=== PATIENT | female | born 1955 | race Caucasian/White ===

== ENCOUNTER 2017-11-10 07:52 | Inpatient (IN) ==
[2017-11-10 08:46] LABS: Baso % (Auto) 0.6 % (0.0-2.0); Eos # (Auto) 0.1 th/mm3 (0.0-0.4); Eos % (Auto) 1.1 % (0.0-4.0); Hematocrit 41.5 % (35.0-46.0); Hemoglobin 13.8 gm/dL (11.6-15.3); Lymph # (Auto) 1.7 th/mm3 (1.0-4.8); Mean Corpuscular HGB Conc 33.2 % (32.0-36.0); Mean Corpuscular Hemoglobin 31.1 pg (27.0-34.0); Mean Corpuscular Volume 93.9 fL (80.0-100.0); Mean Platelet Volume 8.6 fL (7.0-11.0); Mono # (Auto) 0.4 th/mm3 (0.0-0.9); Mono % (Auto) 5.4 % (0.0-8.0); Neut # (Auto) 5.5 th/mm3 (1.8-7.7); Neut % (Auto) 70.9 % (16.0-70.0); Platelet Count 168 th/mm3 (150-450); Red Blood Count 4.42 mil/mm3 (4.00-5.30); Red Cell Distribution Width 13.1 % (11.6-17.2); White Blood Count 7.8 th/mm3 (4.0-11.0)
[2017-11-10 08:59] LABS: Prothrombin Time 9.9 sec (9.8-11.6)
[2017-11-10] MEDS ORDERED: Lidocaine 1%/Epinephrine 1:100,000 Inj 50 ML Vial ONE (09:44)
[2017-11-10] MEDS ORDERED: fentaNYL Citrate Inj 250 MCG/5 ML Ampul ONE ×2 (09:56→11:48)
--- NOTE | 2017-11-10 10:48 | P.RAD ---
Post CT Procedure Prog Note - Pre Procedure Diagnosis (1) Lung cancer - Post Procedure Diagnosis (1) Lung cancer - Procedure Information Supervising Radiologist: Josafat Morrissey MD Anesthesia: Conscious Sedation - Plan of Activity Patient to Unit: ROPU Patient condition: Good Additional Comments: pneumothorax present cxr pending See PACS Report for procedural detail/treatment. Biopsy CT right Lung Specimen: Core Biopsy
--- NOTE | 2017-11-10 11:09 | XR ---
EXAM DATE: 11/10/2017 11:03 AM EDT AGE/SEX: 62 years / Female INDICATIONS: Post right lung biopsy. CLINICAL DATA: This is the patient's subsequent encounter. Patient reports that signs and symptoms h ave been present for 1 day and indicates a pain score of 2/10. MEDICAL/SURGICAL HISTORY: Carcinoma, breast. Chronic obstructive pulmonary disease. Renal river culi. Cholecystectomy. COMPARISON: [facility] [place], CHEST SINGLE AP, 07/02/2015. . FINDINGS: The cardiac silhouette is normal in transverse diameter. There is a right apical pneumothorax followi ng biopsy with 3 cm separation at the apex. There are no signs of tension. There is no evidence of pn eumonia. The background interstitium is prominent though this is likely chronic in nature. CONCLUSION: Right apical pneumothorax following biopsy. Chest tube is to be placed Electronically signed by: Josafat Morrissey MD 11/10/2017 11:07 AM EDT
--- NOTE | 2017-11-10 12:29 | P.RAD ---
Post Procedure Progress Note - Procedure Information Procedure Date: 11/10/17 Supervising Radiologist: Shady Diaz MD Estimated blood loss (mL): 0 Anesthesia: Conscious Sedation - Plan of Activity Patient to Unit: ROPU Patient Condition: Good See PACS Report for procedural detail/treatment.
[2017-11-10] MEDS ORDERED: Acetaminophen 325 MG Tablet PO PRN (13:14)
[2017-11-10] MEDS: Morphine Sulfate Inj 2 MG/ML Vial IV.PUSH PRN ×4 (13:23→23:20)
--- NOTE | 2017-11-10 13:31 | P.HP ---
<Eryn Birmingham W - Last Filed: 11/10/17 15:51> History of Present Illness Primary Care Physician: Dr. James Chief Complaint: pneumothorax after chest tube History of Present Illness: This is a 62 year old female with history of choledocholithiasis, recurrent pancreatitis and biliary obstruction requiring multiple ERCP with stent placement and stone removal, HTN, HLD, COPD, squamous cell carcinoma of skin cancer, vulvar cancer, breast cancer and Raynaud phenomenon. Patient's outpatient oncologist is Dr. Lea located in [place]. Patient had CT of the chest done as an outpatient at [facility] on 09/23/17 which showed: new dominant spiculated nodule in the superior right lower lobe with multiple additional new smaller nodule throughout the right upper lobe, concerning for malignancy. Patient presented to [facility] for CT guided bx of this lung nodule. Patient then had pneumothorax after CT guided bx and chest tube was placed. We have been consulted to admit patient. Patient seen in radiology recovery unit reports that she had nausea earlier which has resolved after zofran. Patient also reports pain earlier at chest tube site that has since resolved. Patient denies SOB, fevers or chills. Past Medical History hypertension Hyperlipidemia COPD squamous cell carcinoma of the skin Vulvar cancer breast cancer Raynaud phenomenon pancreatitis Past Surgical History ex lap, Cholecystectomy bilateral mastectomy appendix vulvar surgery Social History has 2 growth children one lives in [facility] one lives locally denies etoh use current tobacco, trying to quit Family medical history emphysema HTN HLD fibrocystic disease breast cancer - Diagnosis (1) Pneumothorax after biopsy Review of Systems All other systems reviewed negative except as stated in HPI [facility] - History History Provided By: Patient - Medical History Medical History: Medical History (Last Updated 11/10/17 @ 08:23 by Marisel Godinez RN) Breast CA COPD (chronic obstructive pulmonary disease) Hypertension Nephrolithiasis Osteoporosis Polycythemia - Tobacco History Second Hand Smoke Exposure: No Tobacco Use In Past 30 Days: Yes Smoking Status: Current every day smoker Tobacco Type: Cigarettes - Alcohol History How Often Do You Have a Drink Containing Alcohol: Never - Substance Use History Substance History: No History of Abuse - Travel History Recent Travel in the [place] Within the Last 8 Weeks: No Recent Travel Out of the Country Within the Last 8 Weeks: No Medications and Allergies Allergies Allergy/AdvReac Type Severity Reaction Status Date / Time Sulfa (Sulfonamide Allergy Severe Hives Verified 11/10/17 08:11 Antibiotics) codeine AdvReac Severe Nausea/Vomi Verified 11/10/17 08:11 ting hydrocodone AdvReac Severe Nausea/Vomi Verified 11/10/17 08:11 ting hydromorphone AdvReac Severe Nausea/Vomi Verified 11/10/17 08:11 ting oxycodone AdvReac Severe Nausea/Vomi Verified 11/10/17 08:11 ting Home Medications Medication Instructions Recorded Confirmed Type Breo Ellipta 100 mcg INHALATION DAILY 11/10/17 11/10/17 History fluconazole 100 mg PO DAILY 11/10/17 11/10/17 History lisinopril 5 mg PO DAILY 11/10/17 11/10/17 History tramadol 50 mg PO Q4-6H PRN 11/10/17 11/10/17 History umeclidinium [Incruse Ellipta] 1 inh INHALATION HS 11/10/17 11/10/17 History Active Medications: Active Medications Sodium Chloride (Ns Inj) 1,000 mls @ 30 mls/hr IV.SIG .Q24H [facility] Exam Vital signs: Vital Signs 11/10/17 08:12 11/10/17 10:55 11/10/17 11:10 Temperature 97.7 F 98.0 F Pulse Rate 76 93 H 83 Respiratory Rate 20 20 20 Blood Pressure 149/82 H 100/67 104/69 Pulse Oximetry 97 98 98 11/10/17 11:40 11/10/17 12:35 11/10/17 12:50 Temperature 97.8 F Pulse Rate 76 78 68 Respiratory Rate 20 16 20 Blood Pressure 104/69 102/67 135/85 Pulse Oximetry 98 95 97 Intake & Output 11/09/17 11/10/17 11/10/17 18:59 06:59 18:59 Weight 35.38 kg Other: Weight On Admission 35.38 kg Narrative: GENERAL: This is a well-nourished, well-developed patient, in no apparent distress. CARDIOVASCULAR: Regular rate and rhythm RESPIRATORY: clear bilaterally. Right chest tube present GASTROINTESTINAL: Abdomen soft, non-tender, nondistended. Normal active bowel sounds MUSCULOSKELETAL: Extremities without clubbing, cyanosis, or edema. NEURO: Alert & Oriented x4 to person, place, time, situation. Moves all ext x4 Results - Labs CBC & Chem 7: 11/10/17 08:30 Labs: Laboratory Results - last 24 hr 11/10/1718 18 08:30 08:30 08:30 WBC 7.8 RBC 4.42 Hgb 13.8 Hct 41.5 MCV 93.9 MCH 31.1 MCHC 33.2 RDW 13.1 Plt Count 168 MPV 8.6 Neut % (Auto) 70.9 H Lymph % (Auto) 22.0 [place] % (Auto) 5.4 Eos % (Auto) 1.1 Baso % (Auto) 0.6 Neut # (Auto) 5.5 Lymph # (Auto) 1.7 [place] # (Auto) 0.4 Eos # (Auto) 0.1 Baso # (Auto) 0.0 WBC Differential . Differential Comment Auto diff final PT 9.9 INR 1.0 APTT 23.6 L - Imaging Impressions Chest X-Ray 11/10/17 10:45 CONCLUSION: Right apical pneumothorax following biopsy. Chest tube is to be placed Caprini VTE Risk Assessment Caprini VTE Risk Assessment: Moderate/High Risk (score >= 2) Caprini Risk Assessment Model: Point Value = 1 Point Value = 2 Point Value = 3 Point Value = 5 Age 41-60 Minor surgery BMI > 25 kg/m2 Swollen legs Varicose veins or History of unexplained or recurrent spontaneous Oral contraceptives or hormone replacement Sepsis (< 1 month) Serious lung disease, including pneumonia (< 1 month) Abnormal pulmonary function Acute myocardial infarction Congestive heart failure (< 1 month) History of inflammatory bowel disease Medical patient at bed rest Age 61-74 Arthroscopic surgery Major open surgery (> 45 min) Laparoscopic surgery (> 45 min) Malignancy Confined to bed (> 72 hours) Immobilizing plaster cast Central venous access Age >= 75 History of VTE Family history of VTE Factor V Leiden Prothrombin [id number] Lupus anticoagulant Anticardiolipin antibodies Elevated serum homocysteine Heparin-induced thrombocytopenia Other congenital or acquired thrombophilia Stroke (< 1 month) Elective arthroplasty Hip, pelvis, or leg fracture Acute spinal cord injury (< 1 month) Prophylaxis Regimen: Total Risk Factor Score Risk Level Prophylaxis Regimen 0-1 Low Early ambulation 2 Moderate Order ONE of the following: *Sequential Compression Device (SCD) *Heparin 5000 units SQ BID 3-4 Higher Order ONE of the following medications: *Heparin 5000 units SQ TID *Enoxaparin/Lovenox 40 mg SQ daily (WT < 150 kg, CrCl > 30 mL/min) *Enoxaparin/Lovenox 30 mg SQ daily (WT < 150 kg, CrCl > 10-29 mL/min) *Enoxaparin/Lovenox 30 mg SQ BID (WT < 150 kg, CrCl > 30 mL/min) AND/OR *Sequential Compression Device (SCD) 5 or more Highest Order ONE of the following medications: *Heparin 5000 units SQ TID (Preferred with Epidurals) *Enoxaparin/Lovenox 40 mg SQ daily (WT < 150 kg, CrCl > 30 mL/min) *Enoxaparin/Lovenox 30 mg SQ daily (WT < 150 kg, CrCl > 10-29 mL/min) *Enoxaparin/Lovenox 30 mg SQ BID (WT < 150 kg, CrCl > 30 mL/min) AND *Sequential Compression Device (SCD) Assessment and Plan - Assessment (1) Pneumothorax after biopsy Code(s): J95.811 - Postprocedural pneumothorax Status: Acute Plan: This is a 62 year old female with history of choledocholithiasis, recurrent pancreatitis and biliary obstruction requiring multiple ERCP with stent placement and stone removal, HTN, HLD, COPD, squamous cell carcinoma of skin cancer, breast cancer and Raynaud phenomenon. Patient had CT of the chest done as an outpatient at [facility] on 09/23/17 which showed: new dominant spiculated nodule in the superior right lower lobe with multiple additional new smaller nodule throughout the right upper lobe, concerning for malignancy. Patient presented to [facility] for CT guided bx of this lung nodule. Patient then had pneumothorax after CT guided bx and chest tube was placed. We have been consulted to admit patient. Pneumothorax after biopsy Chest tube placed by IR, management of chest tube per IR repeat CXR in AM Hypertension Continue patient's home Lisinopril 5 mg daily COPD Continue patient's home Breo Ellipta and Incruse Ellipta add duonebs as needed Tobacco use nicotine patch encouraged to abstain DVT prophylaxis with SCDs <Edward Bell - Last Filed: 11/11/17 13:45> History of Present Illness Primary Care Physician: UNKNOWN - Diagnosis (1) Pneumothorax after biopsy Inpatient Certification: I certify that the inpatient services were ordered in accordance with Medicare regulations governing the order. This includes certification that hospital inpatient services are reasonable and necessary and in the case of services not specified as inpatient-only under 42 CFR 419.22(n), that they are appropriately provided as inpatient services in accordance to with the 2-midnight benchmark under 43 CFR 412.3(e) [facility] - Medical History Medical History: Medical History (Last Updated 11/10/17 @ 08:23 by Marisel Godinez RN) Breast CA COPD (chronic obstructive pulmonary disease) Hypertension Nephrolithiasis Osteoporosis Polycythemia Medications and Allergies Active Medications: Active Medications Acetaminophen (Tylenol) 650 mg PO Q4H PRN PRN Reason: Temp > 100.4 Al Hydroxide/Mg Hydroxide (Milk Of Basia Liq) 30 ml PO Q12H PRN PRN Reason: Mild Constipation Albuterol (Duoneb Neb (Prn)) 1 ampul NEB Q2HR NEB PRN PRN Reason: SHORTNESS OF BREATH/WHEEZING Fluticasone/Vilanterol (Breo Ellipta 100/25 Mcg Inh) 1 puff INH BID [facility] Last Admin: 11/11/17 09:23 Dose: 1 puff Sodium Chloride (Ns Inj) 1,000 mls @ 30 mls/hr IV.SIG .Q24H [facility] Last Admin: 11/11/17 09:23 Dose: Not Given Potassium Chloride/Sodium Chloride (Potassium Chlor 20 Meq/Nacl 0.45% Inj) 1, 000 mls @ 84 mls/hr IV.CONT .[id number] [facility] Lisinopril (Prinivil) 5 mg PO DAILY [facility] Last Admin: 11/11/17 09:22 Dose: 5 mg Morphine Sulfate (Morphine Inj) 2 mg IV.PUSH Q4H PRN PRN Reason: BREAKTHROUGH PAIN Last Admin: 11/11/17 09:17 Dose: 2 mg Nicotine (Habitrol 14 Mg Patch.24 Hr) 1 patch T-DERMAL DAILY [facility] Last Admin: 11/11/17 09:23 Dose: Not Given Ondansetron HCl (Zofran Inj) 4 mg IV.PUSH Q6H PRN PRN Reason: NAUSEA OR VOMITING Last Admin: 11/11/17 09:24 Dose: 4 mg Patch Removal (Remove Old Patch) 1 each T-DERMAL DAILY [facility] Last Admin: 11/11/17 09:23 Dose: 1 each Patient Own Medication ( Umeclidinium [ Incruse Ellipta] 1 Inh) 0 each INH DAILY [facility] Senna/Docusate Sodium (Meri-Colace) 1 tab PO BID [facility] Last Admin: 11/11/17 09:21 Dose: Not Given Temazepam (Restoril) 15 mg PO HS PRN PRN Reason: INSOMNIA Tramadol HCl (Ultram) 50 mg PO Q6H PRN PRN Reason: PAIN SCALE 1 TO 10 Last Admin: 11/11/17 13:18 Dose: 50 mg Exam Vital signs: Vital Signs 11/10/17 14:15 11/10/17 14:45 11/10/17 20:00 Temperature 97.8 F Pulse Rate 68 67 87 Respiratory Rate 18 20 18 Blood Pressure 138/80 130/78 149/69 H Pulse Oximetry 98 98 92 L 11/11/17 00:00 11/11/17 08:00 11/11/17 12:00 Temperature 98.1 F 98.0 F 97.8 F Pulse Rate 85 84 87 Respiratory Rate 18 17 17 Blood Pressure 125/74 108/60 125/60 Pulse Oximetry 100 96 92 L Intake & Output 11/10/17 11/11/17 11/11/17 18:59 06:59 18:59 Weight 35.38 kg 35.38 kg Other: # Voids 4 Date of Last Bowel Movement 11/10/17 # Emeses 2 Weight On Admission 35.38 kg Results - Labs CBC & Chem 7: 11/11/17 06:51 11/11/17 06:51 Labs: Laboratory Results - last 24 hr 11/11/17 11/11/17 06:51 06:51 WBC 6.4 RBC 3.94 L Hgb 12.2 Hct 36.8 MCV 93.4 MCH 31.1 MCHC 33.3 RDW 13.1 Plt Count 141 L MPV 8.9 Neut % (Auto) 76.3 H Lymph % (Auto) 17.6 [place] % (Auto) 5.5 Eos % (Auto) 0.2 Baso % (Auto) 0.4 Neut # (Auto) 4.9 Lymph # (Auto) 1.1 [place] # (Auto) 0.4 Eos # (Auto) 0.0 Baso # (Auto) 0.0 WBC Differential . Differential Comment Auto diff final Sodium 143 Potassium 4.2 Chloride 107 Carbon Dioxide 25.6 Anion Gap 10 BUN 17 Creatinine 0.92 Estimated GFR 62 L Random Glucose 77 Calcium 8.8 - Imaging Impressions Chest Tube Insertion 11/10/17 00:00 CONCLUSION: 1. Uncomplicated chest tube placement as above. Chest X-Ray 11/11/17 03:26 CONCLUSION: Resolution of the right pneumothorax with right chest tube in place. Chest X-Ray 11/11/17 12:28 CONCLUSION: Resolution of the previously noted right pneumothorax status post placement of small chest tube. Caprini VTE Risk Assessment Caprini Risk Assessment Model: Point Value = 1 Point Value = 2 Point Value = 3 Point Value = 5 Age 41-60 Minor surgery BMI > 25 kg/m2 Swollen legs Varicose veins or History of unexplained or recurrent spontaneous Oral contraceptives or hormone replacement Sepsis (< 1 month) Serious lung disease, including pneumonia (< 1 month) Abnormal pulmonary function Acute myocardial infarction Congestive heart failure (< 1 month) History of inflammatory bowel disease Medical patient at bed rest Age 61-74 Arthroscopic surgery Major open surgery (> 45 min) Laparoscopic surgery (> 45 min) Malignancy Confined to bed (> 72 hours) Immobilizing plaster cast Central venous access Age >= 75 History of VTE Family history of VTE Factor V Leiden Prothrombin [id number] Lupus anticoagulant Anticardiolipin antibodies Elevated serum homocysteine Heparin-induced thrombocytopenia Other congenital or acquired thrombophilia Stroke (< 1 month) Elective arthroplasty Hip, pelvis, or leg fracture Acute spinal cord injury (< 1 month) Prophylaxis Regimen: Total Risk Factor Score Risk Level Prophylaxis Regimen 0-1 Low Early ambulation 2 Moderate Order ONE of the following: *Sequential Compression Device (SCD) *Heparin 5000 units SQ BID 3-4 Higher Order ONE of the following medications: *Heparin 5000 units SQ TID *Enoxaparin/Lovenox 40 mg SQ daily (WT < 150 kg, CrCl > 30 mL/min) *Enoxaparin/Lovenox 30 mg SQ daily (WT < 150 kg, CrCl > 10-29 mL/min) *Enoxaparin/Lovenox 30 mg SQ BID (WT < 150 kg, CrCl > 30 mL/min) AND/OR *Sequential Compression Device (SCD) 5 or more Highest Order ONE of the following medications: *Heparin 5000 units SQ TID (Preferred with Epidurals) *Enoxaparin/Lovenox 40 mg SQ daily (WT < 150 kg, CrCl > 30 mL/min) *Enoxaparin/Lovenox 30 mg SQ daily (WT < 150 kg, CrCl > 10-29 mL/min) *Enoxaparin/Lovenox 30 mg SQ BID (WT < 150 kg, CrCl > 30 mL/min) AND *Sequential Compression Device (SCD) Assessment and Plan - Assessment (1) Pneumothorax after biopsy Code(s): J95.811 - Postprocedural pneumothorax Status: Acute - Attending Attestation Patient examined. Assessment and plan formulated with Eryn MCBRIDE I agree with the above.
--- NOTE | 2017-11-10 13:34 | CT ---
EXAM DATE: 11/10/2017 11:27 AM EDT AGE/SEX: 62 years / Female INDICATIONS: Right lung nodule. CLINICAL DATA: This is the patient's initial encounter. Patient reports that signs and symptoms have been present for 1 day and indicates a pain score of 0/10. MEDICAL/SURGICAL HISTORY: Carcinoma, breast. Chronic obstructive pulmonary disease. Renal river culi. Cholecystectomy. COMPARISON: [facility], CT CHEST W/ CONTRAST, 09/23/2017. . SEDATION TIME (min): 30 BIOPSY SITE: Right lung MEDICATION(S): 3 mg midazolam (Versed) IV 150 mcg fentanyl (Sublimaze) IV DEVICE(S): 19 gauge Introducer 20 gauge BARD biopsy needle . . PROCEDURE: CT guided Right lung biopsy Conscious sedation with continuous EKG and oximetry monitoring. Prior to the procedure informed consent was obtained. Any appropriate prior imaging studies were rev iewed. Using automated exposure control and adjustment of the mA and/or kV according to patient size , radiation dose was kept as low as reasonably achievable to obtain optimal diagnostic quality images . DICOM format image data is available electronically for review and comparison. The site was prepped in a sterile fashion. Full sterile technique was used, including cap, mask, arya rile gloves and gown and a large sterile sheet. Hand hygiene and 2% chlorhexidine and/or betadine/al cohol prep was utilized per protocol for cutaneous antisepsis. The skin and subcutaneous tissues wer e infiltrated with local anesthetic solution. With CT guidance the previously identified target was localized. Biopsy was performed using the presc ribed needle as above. Adequate hemostasis was obtained with compression at the puncture site. Follow-up CT scan reveals no pneumothorax. Conscious sedation was performed with the prescribed dosages and duration as above in the presence of an independent trained radiology nurse to assist in the monitoring of the patient. EKG and oximetry remained stable throughout the procedure. The patient tolerated the procedure well and there were no complications. The patient was sent to Radiology Outpatient Unit in stable condition. FINDINGS: The mass in the superior segment of the right lower lobe was identified and a total of 6 passes made through lesion. Postbiopsy images demonstrate a small pneumothorax. Chest radiograph is to be perform ed. CONCLUSION: CT-guided biopsy with postbiopsy pneumothorax. Chest radiograph is to be performed. Electronically signed by: Josafat Morrissey MD 11/10/2017 1:32 PM EDT
--- NOTE | 2017-11-10 14:22 | IR ---
EXAM DATE: 11/10/2017 1:51 PM EDT AGE/SEX: 62 years / Female INDICATIONS: Patient presents with right side pneumothorax in need of chest tube placement. CLINICAL DATA: This is the patient's initial encounter. Patient reports that signs and symptoms have been present for 1 day and indicates a pain score of 3/10. MEDICAL/SURGICAL HISTORY: . Breast carcinoma, COPD, Renal calculi. . Cholecystectomy, Post rig ht lung biopsy. COMPARISON: No prior exams available for comparison. FLUORO TIME (min): 0.6 IMAGE SERIES: 1 ACCESS SITE: SEDATION TIME (min): 30 MEDICATION(S): 2 mg midazolam (Versed) IV 100 mcg fentanyl (Sublimaze) IV DEVICE(S): 8 [place] non-locking catheter 30cm [place] . . PROCEDURE: 1. Fluoroscopically guided chest tube placement. 2. Conscious sedation with continuous EKG and oximetry monitoring. The risks, benefits and alternatives to the procedure were explained and verbal and written consent w as obtained. The site was prepped in sterile fashion. Full sterile technique was used, including ca p, mask, sterile gloves and gown and a large sterile sheet. Hand hygiene and 2% chlorhexidine and/or betadine/alcohol prep was utilized per protocol for cutaneous antisepsis. The skin and subcutaneous tissues were infiltrated with local anesthetic solution. With fluoroscopic guidance the chest was punctured between the first and second interspace and the pr escribed catheter was placed in the lung apex. Wall suction was applied. Post procedure images demon strate satisfactory position of the tube. The catheter was sutured in place and a Percu-Stay was andrea lied. Conscious sedation was performed with the prescribed dosages and duration as above in the presence of an independent trained radiology nurse to assist in the monitoring of the patient. EKG and oximetry remained stable throughout the procedure. The patient tolerated the procedure well and there were n o complications. The patient was sent to post anesthesia recovery in stable condition. CONCLUSION: 1. Uncomplicated chest tube placement as above. Electronically signed by: Shady Diaz MD 11/10/2017 2:21 PM EDT
[2017-11-10] MEDS ORDERED: Ketorolac Inj 30 MG/ML (IVP) Vial IV.PUSH ONE (14:45)
--- NOTE | 2017-11-10 16:29 | ECG ---
Date Performed: 11/10/2017 Time Performed: 13:50:37 PTAGE: 62 years EKG: Sinus rhythm NORMAL ECG PREVIOUS TRACING : 06/28/2015 18.18 Since the previous tracing, no significant change noted DOCTOR: Josafat Bee Interpretating Date/Time 11/10/2017 16:27:06
[2017-11-10] MEDS: Sod Chloride 0.9% Inj 1,000 ML IV.SIG SCH (19:27)
[2017-11-10] MEDS ORDERED: Temazepam 15 MG Capsule PO PRN (21:00)
[2017-11-10] MEDS: Senna/Docusate Sodium 8.6/50 MG Tablet PO SCH (23:18)
--- NOTE | 2017-11-11 04:23 | XR ---
EXAM DATE: 11/11/2017 4:07 AM EDT AGE/SEX: 62 years / Female INDICATIONS: Status post chest tube placement, air leak. CLINICAL DATA: This is the patient's initial encounter. Patient reports that signs and symptoms have been present for 1 day and indicates a pain score of 3/10. MEDICAL/SURGICAL HISTORY: . Breast carcinoma, COPD, Renal calculi. . Cholecystectomy, Post ri ght lung biopsy. COMPARISON: [facility] [place], 11/10/2017. . FINDINGS: A single AP view of the chest demonstrates the lungs to be symmetrically aerated without evidence of mass, infiltrate or effusion. There has been interval placement of a small caliber right thoracostomy tube. No residual pneumothorax. Lungs are hyper aerated bilaterally. The cardiomediastinal contours are unremarkable. Osseous structures are intact. CONCLUSION: Resolution of the right pneumothorax with right chest tube in place. Electronically signed by: Adonay Lopez MD 11/11/2017 4:21 AM EDT
[2017-11-11 07:24] LABS: Baso % (Auto) 0.4 % (0.0-2.0); Eos % (Auto) 0.2 % (0.0-4.0); Hematocrit 36.8 % (35.0-46.0); Hemoglobin 12.2 gm/dL (11.6-15.3); Lymph # (Auto) 1.1 th/mm3 (1.0-4.8); Lymph % (Auto) 17.6 % (9.0-44.0); Mean Corpuscular HGB Conc 33.3 % (32.0-36.0); Mean Corpuscular Hemoglobin 31.1 pg (27.0-34.0); Mean Corpuscular Volume 93.4 fL (80.0-100.0); Mean Platelet Volume 8.9 fL (7.0-11.0); Mono # (Auto) 0.4 th/mm3 (0.0-0.9); Mono % (Auto) 5.5 % (0.0-8.0); Neut # (Auto) 4.9 th/mm3 (1.8-7.7); Neut % (Auto) 76.3 % (16.0-70.0); Platelet Count 141 th/mm3 (150-450); Red Blood Count 3.94 mil/mm3 (4.00-5.30); Red Cell Distribution Width 13.1 % (11.6-17.2); White Blood Count 6.4 th/mm3 (4.0-11.0)
[2017-11-11 07:59] LABS: Calcium 8.8 mg/dL (8.5-10.1); Carbon Dioxide 25.6 meq/L (21.0-32.0); Potassium 4.2 meq/L (3.5-5.1)
[2017-11-11] MEDS ORDERED: UMECLIDINIUM INH SCH (09:00)
[2017-11-11] MEDS: Morphine Sulfate Inj 2 MG/ML Vial IV.PUSH PRN (09:17)
[2017-11-11] MEDS: Senna/Docusate Sodium 8.6/50 MG Tablet PO SCH ×2 (09:21→20:39)
[2017-11-11] MEDS: Lisinopril 5 MG Tablet PO SCH (09:22)
[2017-11-11] MEDS: Sod Chloride 0.9% Inj 1,000 ML IV.SIG SCH (09:23)
--- NOTE | 2017-11-11 12:55 | XR ---
EXAM DATE: 11/11/2017 12:52 PM EDT AGE/SEX: 62 years / Female INDICATIONS: Right sided chest pain. Evaluate for pneumothorax. CLINICAL DATA: This is the patient's subsequent encounter. Patient reports that signs and symptoms h ave been present for 2 days and indicates a pain score of 4/10. MEDICAL/SURGICAL HISTORY: Hypertension. Chronic obstructive pulmonary disease. None. [place] [facility] [place]. . FINDINGS: A small right-sided chest tube has been placed. The previously noted pneumothorax has resolved. The l ungs are clear. The heart is stable. Degenerative changes and scoliosis of the thoracic spine are not ed. CONCLUSION: Resolution of the previously noted right pneumothorax status post placement of small chest tube. Electronically signed by: Damon Francis MD 11/11/2017 12:54 PM EDT
[2017-11-11] MEDS ORDERED: Morphine Sulfate Inj 2 MG/ML Vial IV.PUSH PRN (13:48)
--- NOTE | 2017-11-11 13:50 | P.PNIM ---
Subjective Interval history: Chest tube has been removed. Pt c/o nausea and PO intake has been poor today. Some relief with zofran. Physical Exam Vital signs: 11/11/17 00:00 11/11/17 08:00 11/11/17 12:00 Temperature 98.1 F 98.0 F 97.8 F Pulse Rate 85 84 87 Respiratory Rate 18 17 17 Blood Pressure 125/74 108/60 125/60 Pulse Oximetry 100 96 92 L Narrative: GENERAL: This is a well-nourished, well-developed patient, in no apparent distress. CARDIOVASCULAR: Regular rate and rhythm without murmurs, gallops, or rubs. RESPIRATORY: Clear to auscultation. Breath sounds equal bilaterally. No wheezes , rales, or rhonchi. GASTROINTESTINAL: Abdomen soft, non-tender, nondistended. Normal active bowel sounds MUSCULOSKELETAL: Extremities without clubbing, cyanosis, or edema. NEURO: Alert & Oriented x4 to person, place, time, situation. Moves all ext x4 Results - Labs CBC & Chem 7: 11/11/17 06:51 11/12/17 08:56 - Imaging Chest Tube Insertion 11/10/17 00:00 CONCLUSION: 1. Uncomplicated chest tube placement as above. Lung Biopsy CT 11/10/17 00:00 CONCLUSION: CT-guided biopsy with postbiopsy pneumothorax. Chest radiograph is to be performed. Chest X-Ray 11/11/17 12:28 CONCLUSION: Resolution of the previously noted right pneumothorax status post placement of small chest tube. Assessment and Plan - Assessment (1) Pneumothorax after biopsy Code(s): J95.811 - Postprocedural pneumothorax Status: Acute Plan: This is a 62 year old female with history of choledocholithiasis, recurrent pancreatitis and biliary obstruction requiring multiple ERCP with stent placement and stone removal, HTN, HLD, COPD, squamous cell carcinoma of skin cancer, breast cancer and Raynaud phenomenon. Patient had CT of the chest done as an outpatient at [facility] on 09/23/17 which showed: new dominant spiculated nodule in the superior right lower lobe with multiple additional new smaller nodule throughout the right upper lobe, concerning for malignancy. Patient presented to [facility] [place] for CT guided bx of this lung nodule. Patient then had pneumothorax after CT guided bx and chest tube was placed. We have been consulted to admit patient. Pneumothorax after biopsy Chest tube placed by IR 11/10 & removed 11/11 - awaiting repeat CXR - ultram prn pain Nausea - possibly d/t morphine. Stop morphine - IVFs - anticipate d/c to home 11/12/17 Hypertension Continue patient's home Lisinopril 5 mg daily COPD Continue patient's home Breo Ellipta and Incruse Ellipta add duonebs as needed Tobacco use nicotine patch encouraged to abstain DVT prophylaxis with SCDs
--- NOTE | 2017-11-11 14:16 | XR ---
EXAM DATE: 11/11/2017 2:04 PM EDT AGE/SEX: 62 years / Female INDICATIONS: Removal right chest tube. CLINICAL DATA: This is the patient's subsequent encounter. Patient reports that signs and symptoms h ave been present for 2 days and indicates a pain score of 8/10. MEDICAL/SURGICAL HISTORY: Carcinoma, breast. Chronic obstructive pulmonary disease. Cholecyste ctomy. RIGHT LUNG BIOPSY COMPARISON: [facility] [place], [place], CHEST EXPIRATION ONLY, 11/11/2017. . FINDINGS: A single AP view of the chest demonstrates the lungs to be symmetrically aerated without evidence of mass, infiltrate or effusion. The cardiomediastinal contours are unremarkable. Osseous structures a re intact. Hyperinflation. No obvious pneumothorax. CONCLUSION: Hyperinflation. Electronically signed by: Vinny Be MD 11/11/2017 2:15 PM EDT
--- NOTE | 2017-11-11 14:53 | IR ---
EXAM DATE: 11/11/2017 2:45 PM EDT AGE/SEX: 62 years / Female INDICATIONS: POST BIOPSY CHEST TUBE COMPARISON: [facility], CHEST 1V SINGLE AP, 11/11/2017. . DEVICE(S): Vaseline occlusive dressing G+TAPE PROCEDURE: 1. Chest tube removal. Using aseptic technique the previously placed chest tube was easily removed in one piece and Vaseline gauze and sterile dressing was applied. Chest radiograph is to be obtained. CONCLUSION: Uncomplicated chest tube removal. Electronically signed by: Arnold Hermosillo MD 11/11/2017 2:52 PM EDT
[2017-11-11] MEDS: KCL 20 mEq/NACL 0.45% Inj 1,000 ML IV.CONT SCH (16:53)
[2017-11-12] MEDS: KCL 20 mEq/NACL 0.45% Inj 1,000 ML IV.CONT SCH (04:17)
[2017-11-12 09:08] VITALS: BP 112/59; PULSE 69; RESP 17; TEMP 98.5; O2SAT 95
[2017-11-12] MEDS: Senna/Docusate Sodium 8.6/50 MG Tablet PO SCH (09:32)
[2017-11-12] MEDS: Lisinopril 5 MG Tablet PO SCH (09:32)
--- NOTE | 2017-11-12 09:58 | P.DS ---
<Eryn Birmingham W - Last Filed: 11/12/17 12:43> Date of admission: 11/10/17 13:14 Primary care physician: UNKNOWN Attending physician on discharge: Edward Bell Anticipated date of discharge: 11/12/17 Brief History from admission: This is a 62 year old female with history of choledocholithiasis, recurrent pancreatitis and biliary obstruction requiring multiple ERCP with stent placement and stone removal, HTN, HLD, COPD, squamous cell carcinoma of skin cancer, vulvar cancer, breast cancer and Raynaud phenomenon. Patient's outpatient oncologist is Dr. Lea located in [place]. Patient had CT of the chest done as an outpatient at [facility] on 09/23/17 which showed: new dominant spiculated nodule in the superior right lower lobe with multiple additional new smaller nodule throughout the right upper lobe, concerning for malignancy. Patient presented to [facility] [place] for CT guided bx of this lung nodule. Patient then had pneumothorax after CT guided bx and chest tube was placed. We have been consulted to admit patient. Patient seen in radiology recovery unit reports that she had nausea earlier which has resolved after zofran. Patient also reports pain earlier at chest tube site that has since resolved. Patient denies SOB, fevers or chills. Past Medical History hypertension Hyperlipidemia COPD squamous cell carcinoma of the skin Vulvar cancer breast cancer Raynaud phenomenon pancreatitis Past Surgical History ex lap, Cholecystectomy bilateral mastectomy appendix vulvar surgery Social History has 2 growth children one lives in [facility] one lives locally denies etoh use current tobacco, trying to quit Family medical history emphysema HTN HLD fibrocystic disease breast cancer DS: Diagnosis - Discharge Diagnosis (1) Pneumothorax after biopsy Status: Acute DS: Medications - Discharge Medications Prescriptions: nicotine 1 patch TRANSDERMAL DAILY 30 Days each DS: Summary Hospital Course: This is a 62 year old female with history of choledocholithiasis, recurrent pancreatitis and biliary obstruction requiring multiple ERCP with stent placement and stone removal, HTN, HLD, COPD, squamous cell carcinoma of skin cancer, breast cancer and Raynaud phenomenon. Patient had CT of the chest done as an outpatient at [facility] on 09/23/17 which showed: new dominant spiculated nodule in the superior right lower lobe with multiple additional new smaller nodule throughout the right upper lobe, concerning for malignancy. Patient presented to [facility] [place] for CT guided bx of this lung nodule. Patient then had pneumothorax after CT guided bx and chest tube was placed. We have been consulted to admit patient. Pneumothorax after biopsy Chest tube placed by IR 11/10 & removed 11/11 - Repeat CXR (11/12) revealed clear lungs - ultram prn pain Nausea - possibly d/t morphine. Stop morphine - IVFs - nausea improved Hypertension Continue patient's home Lisinopril 5 mg daily COPD Continue patient's home Breo Ellipta and Incruse Ellipta add duonebs as needed Tobacco use nicotine patch encouraged to abstain DVT prophylaxis with SCDs - Time Spent with Patient Total time spent providing and/or coordinating discharge services: Greater than 30 minutes - Quality: VTE Deep Vein Thrombosis/Pulmonary Embolism Present on Admission: No Exam Vital signs: Vital Signs 11/11/17 12:00 11/11/17 16:00 11/11/17 16:23 Temperature 97.8 F 98.1 F Pulse Rate 87 72 Respiratory Rate 17 17 6 L Blood Pressure 125/60 115/63 Pulse Oximetry 92 L 92 L 11/11/17 20:00 11/12/17 00:00 11/12/17 04:00 Temperature 98 F 98.5 F 98.2 F Pulse Rate 78 76 77 Respiratory Rate 17 16 16 Blood Pressure 108/59 L 108/63 110/60 Pulse Oximetry 96 98 97 11/12/17 08:00 Temperature 98.5 F Pulse Rate 69 Respiratory Rate 17 Blood Pressure 112/59 L Pulse Oximetry 95 Intake & Output 11/11/17 11/12/17 11/12/17 18:59 06:59 18:59 Intake Total 0 / 0 Balance 0 / 0 Weight 35.2 kg Intake: IV 0 / 0 Potassium Chlor 20 mEq/NACL 0. 0 / 0 45% Inj 1,000 ML @ 84 mls/hr IV .CONT .[id number] [facility] Rx#:[id number] Other: # Voids 2 4 Date of Last Bowel Movement 11/10/17 11/10/17 11/10/17 Narrative: GENERAL: This is a well-nourished, well-developed patient, in no apparent distress. CARDIOVASCULAR: Regular rate and rhythm RESPIRATORY: Clear to auscultation. Breath sounds equal bilaterally. GASTROINTESTINAL: Abdomen soft, non-tender, nondistended. Normal active bowel sounds MUSCULOSKELETAL: Extremities without clubbing, cyanosis, or edema. NEURO: Alert & Oriented x4 to person, place, time, situation. Moves all ext x4 Results Procedures completed during hospitalization: CT guided bx of this lung nodule. Chest tube placed by IR 11/10 & removed 11/11 Labs on day of discharge: Labs from last 24 hours 11/12/17 08:56 Sodium Pending Potassium Pending Chloride Pending Carbon Dioxide Pending Anion Gap Pending BUN Pending Creatinine Pending Random Glucose Pending Calcium Pending - Impressions ITS Impressions Chest Tube Insertion 11/10/17 00:00 CONCLUSION: 1. Uncomplicated chest tube placement as above. Lung Biopsy CT 11/10/17 00:00 CONCLUSION: CT-guided biopsy with postbiopsy pneumothorax. Chest radiograph is to be performed. Tunnelled Chest Tube Removal 11/11/17 00:00 CONCLUSION: Uncomplicated chest tube removal. Chest X-Ray 11/11/17 13:45 CONCLUSION: Hyperinflation. <Edward Bell - Last Filed: 11/13/17 16:17> Date of admission: 11/10/17 13:14 Primary care physician: UNKNOWN DS: Diagnosis - Discharge Diagnosis (1) Pneumothorax after biopsy Status: Acute DS: Summary Hospital Course: Patient examined. Assessment and plan formulated with Eryn Birmingham PA-C. I agree with the above. - Time Spent with Patient Total time spent providing and/or coordinating discharge services: Greater than 30 minutes Exam Vital signs: Intake & Output 11/12/17 11/13/17 11/13/17 18:59 06:59 18:59 Other: Date of Last Bowel Movement 11/10/17 Results - Impressions ITS Impressions Chest Tube Insertion 11/10/17 00:00 CONCLUSION: 1. Uncomplicated chest tube placement as above. Lung Biopsy CT 11/10/17 00:00 CONCLUSION: CT-guided biopsy with postbiopsy pneumothorax. Chest radiograph is to be performed. Tunnelled Chest Tube Removal 11/11/17 00:00 CONCLUSION: Uncomplicated chest tube removal. Chest X-Ray 11/12/17 00:00 CONCLUSION: Clear lungs. Discharge Plan - Discharge Order Discharge Orders: Discharge Order (Routine); Ordered 11/12/17 Ordered By: Eryn Birmingham - Discharge Details Anticipated Discharge Date: 11/12/17 - Physicians Team Primary Care Provider: UNKNOWN, Other Providers: ; Edward Bell, DO - Rxs /Orders / Referrals /Forms Prescriptions: New nicotine 14 mg/24 hr Patch 24 Hour 1 patch Transdermal DAILY 30 Days RF: 0 Continue Breo Ellipta 100 mcg Inhalation DAILY fluconazole 100 mg Tablet 100 mg PO DAILY lisinopril 5 mg Tablet 5 mg PO DAILY tramadol 50 mg Tablet 50 mg PO Q4-6H PRN (Reason: Shortness Of Breath) umeclidinium [Incruse Ellipta] 62.5 mcg/actuation Blister With Device 1 inh INHALATION HS Referrals: Valente Wagner MD [INFECTIOUS DISEASE] - See Instructions (follow up in 1 week) - Discharge Instructions Patient Printed Instructions: Nicotine (Absorbed through the skin), Traumatic Pneumothorax (DC), How to Stop Smoking (DC) Additional Instructions: Follow up Dr. Lea in 1-2 weeks
[2017-11-12 10:10] LABS: Calcium 8.3 mg/dL (8.5-10.1); Carbon Dioxide 27.9 meq/L (21.0-32.0); Potassium 4.2 meq/L (3.5-5.1)
--- NOTE | 2017-11-12 12:28 | XR ---
EXAM DATE: 11/12/2017 12:21 PM EDT AGE/SEX: 62 years / Female INDICATIONS: . Coughing up blood and shortness of breath. CLINICAL DATA: This is the patient's subsequent encounter. Patient reports that signs and symptoms h ave been present for 3 days and indicates a pain score of 0/10. MEDICAL/SURGICAL HISTORY: Hypertension. Chronic obstructive pulmonary disease. Carcinoma, natalie ast. Cholecystectomy. COMPARISON: [facility] [place], CHEST 1V SINGLE AP, 11/11/2017. . FINDINGS: Hyperinflation. Mild dextroscoliosis of the lower thoracic spine again seen. Heart size normal. Surgi river clips left axilla and right upper quadrant. CONCLUSION: Clear lungs. Electronically signed by: Vinny Be MD 11/12/2017 12:27 PM EDT
== END 2017-11-12 17:16 | disposition home or self-care (01) ==
LOC: HRAD 07:52 → HRIP 07:57 → N05 17:37
PROVIDERS: ADMIT Hospitalist; ATTEND Hospitalist